=== PATIENT | female | born 1970 | race Caucasian/White ===

== ENCOUNTER 2017-10-19 21:36 | Emergency (ER) | payer MEDICAID ==
[~2017-10-19] VITALS: Ht 170.2 cm; Wt 87.1 kg
[~2017-10-19 21:36] MED LIST: AMBIEN 10 MG TA10 MG PO; AUGMENTIN 875875 MG PO; BUPROPION XL300 MG PO; CONCERTA18 M1 PO; HYDROCHLOROTHIA25 M1 PO; HYDROXYZINE HCL25 M1 PO; HYDROXYZINE PAM25 M1 GT; LYRICA25 MG PO; NORCO 5-325 TA1 EACH PO; OXECTA5 MG PO; RANITIDINE 150150 M1 PO; XANAX 0.25 MG0.25 MG PO
[2017-10-19] MEDS ORDERED: TOPAMAX50 MG (21:46)
[2017-10-19] MEDS ORDERED: LYRICA 50 MG50 MG (21:47)
[2017-10-19] MEDS ORDERED: BUSPIRONE HCL10 MG (21:48)
[2017-10-19] MEDS ORDERED: ZANAFLEX4 MG (21:48)
[2017-10-19] MEDS ORDERED: TRAZODONE HCL50 MG (21:49)
[2017-10-19] MEDS ORDERED: HYDROCODONE-AP1 EAC6 PO (22:24)
[2017-10-19 22:35] VITALS: BP 118/79
== END 2017-10-19 22:35 | disposition home or self-care (01) ==
LOC: M.ERS 21:36
DX: M94.0 Chondrocostal junction syndrome [Tietze] (principal); F32.9 Major depressive disorder, single episode, unspecified; F17.210 Nicotine dependence, cigarettes, uncomplicated; Z90.710 Acquired absence of both cervix and uterus